=== PATIENT | female | born 1970 | race Caucasian/White ===

== ENCOUNTER 2018-06-17 11:15 | Emergency (ER) | payer MEDICAID ==
[~2018-06-17] VITALS: Ht 157.5 cm; Wt 63.5 kg
[2018-06-17] MEDS ORDERED: NACL 0.9% 1,000 ML IV ONE (11:20)
[2018-06-17 11:27] VITALS: BP_SYST 121
--- NOTE | 2018-06-17 11:35 | NUR ---
Patient to ER bed 1 to gown for evaluation. Side rails up. Report given to Ramírez JHA.
--- NOTE | 2018-06-17 11:40 | NUR ---
Patient comes to ER in personal vehicle accompanied by significant other. Patient AOx4, verbal and ambulatory, with complaint of abdominal pain 08/05. No other compaint or injury at this time.
--- NOTE | 2018-06-17 11:54 | NUR ---
ER Dr. MARTINEZ at bedside examining patient.
[2018-06-17 11:59] LABS: BASOPHILS % (AUTO) 0.5 % (0.0-2.0); EOSINOPHILS # (AUTO) 0.2 K/uL (0.0-0.4); EOSINOPHILS % (AUTO) 3.2 % (0.0-4.0); HEMOGLOBIN 13.9 g/dL (12.0-16.0); LYMPHOCYTES # (AUTO) 1.4 K/uL (1.0-5.5); MEAN CORPUSCULAR HEMOGLOBIN 33 pg (27-31); MEAN CORPUSCULAR HGB CONC 33 % (32-36); MEAN CORPUSCULAR VOLUME 100 fL (79.0-98.0); MONOCYTES # (AUTO) 0.7 K/uL (0.0-1.0); MONOCYTES % (AUTO) 8.8 % (1.7-9.3); NEUTROPHILS # (AUTO) 5.4 K/uL (1.8-7.7); NEUTROPHILS % (AUTO) 69.5 % (40.0-70.0); PLATELET COUNT (AUTO) 359 K/uL (130-430); RED BLOOD CELL COUNT(AUTO) 4.21 MIL/uL (4.2-6.2); RED CELL DISTRIBUTION WIDTH 13.3 % (9.0-15.0); WHITE BLOOD COUNT (AUTO) 7.8 K/uL (4.8-10.8)
[2018-06-17] MEDS ORDERED: ONDANSETRON HCL 4 MG/2 ML VIAL IVP ONE (12:00)
[2018-06-17] MEDS ORDERED: MORPHINE 4 MG/ML INJ. SYRINGE IVP ONE (12:00)
--- NOTE | 2018-06-17 12:00 | NUR ---
Patient refused IV start, and medications stating that she just wants test results.
[2018-06-17 12:12] LABS: CALCIUM 8.8 mg/dL (8.4-11.0); CREATININE 0.69 mg/dL (0.55-1.30); POTASSIUM 3.9 mmol/L (3.5-5.1)
[2018-06-17 12:14] LABS: PROTHROMBIN TIME 9.9 SECS (9.5-12.5)
[2018-06-17 12:16] LABS: ALBUMIN 3.3 g/dL (3.4-4.8); TOTAL BILIRUBIN 0.4 mg/dL (0.0-1.0)
--- NOTE | 2018-06-17 14:10 | NUR ---
DR MARTINEZ at bedside answering patient questions regarding diagnosis
--- NOTE | 2018-06-17 14:55 | NUR ---
Patient returned from ultrasound, tolerated well with minimal discomfort.
[2018-06-17 16:35] VITALS: BP_SYST 124
--- NOTE | 2018-06-17 16:35 | NUR ---
Patient given written and verbal discharge instructions and verbalizes understanding. ER MD discussed with patient the results and treatment provided. Patient in stable condition. ID arm band removed. Rx of Tylenol with codein, and zofran given. Patient educated on pelvic mass, pelvic pain and pain management and to follow up with PMD. Pain Scale 0/10. Opportunity for questions provided and answered. Medication side effect fact sheet provided.
== END 2018-06-17 16:35 | disposition home or self-care (01) ==
LOC: SED 11:15
DX: R19.09 Other intra-abdominal and pelvic swelling, mass and lump (principal); C76.3 Malignant neoplasm of pelvis; R03.0 Elevated blood-pressure reading, without diagnosis of hypertension
CPT/HCPCS: 36415; 71045; 74176; 76830; 76857; 80053; 82150; 82550; 83605; 83690; 85025; 85610; 85730; 87040; 93005; 99284; J2270

== ENCOUNTER 2018-11-13 20:14 | Inpatient (IN) | payer MEDICAID ==
[~2018-11-13] VITALS: Ht 157.5 cm; Wt 68.0 kg
[2018-11-13 20:19] VITALS: BP_SYST 138
--- NOTE | 2018-11-13 20:20 | NUR ---
ER Dr. Lamas in triage examining patient.
[2018-11-13] MEDS ORDERED: NACL 0.9% 1,000 ML IV ONE (20:36)
[2018-11-13] MEDS ORDERED: ONDANSETRON HCL 4 MG/2 ML VIAL IVP ONE (20:45)
[2018-11-13] MEDS ORDERED: MORPHINE 2 MG/ML INJ. SYRINGE IVP ONE (20:45)
--- NOTE | 2018-11-13 20:59 | NUR ---
Patient to ER bed 04 to gown for evaluation. Side rails up.
--- NOTE | 2018-11-13 21:05 | NUR ---
Pt complains of abdominal pain for the last three days and got worse today. Pt states she alternates from having diarrhea and constipation. Denies N/V. Abdomen appears to be distended. Pt is a chemo-patient. No other injuries/complaint per patient or noted.
[2018-11-13 21:58] LABS: BASOPHILS % (AUTO) 0.4 % (0.0-2.0); EOSINOPHILS # (AUTO) 0.2 K/uL (0.0-0.4); EOSINOPHILS % (AUTO) 2.8 % (0.0-4.0); HEMATOCRIT 38.1 % (36-48); HEMOGLOBIN 12.7 g/dL (12.0-16.0); LYMPHOCYTES # (AUTO) 1.8 K/uL (1.0-5.5); LYMPHOCYTES % (AUTO) 25.2 % (20.5-51.5); MEAN CORPUSCULAR HEMOGLOBIN 31 pg (27-31); MEAN CORPUSCULAR HGB CONC 33 % (32-36); MEAN CORPUSCULAR VOLUME 92 fL (79.0-98.0); MONOCYTES # (AUTO) 0.8 K/uL (0.0-1.0); MONOCYTES % (AUTO) 11.6 % (1.7-9.3); NEUTROPHILS # (AUTO) 4.3 K/uL (1.8-7.7); PLATELET COUNT (AUTO) 267 K/uL (130-430); RED BLOOD CELL COUNT(AUTO) 4.13 MIL/uL (4.2-6.2); RED CELL DISTRIBUTION WIDTH 19.7 % (9.0-15.0); WHITE BLOOD COUNT (AUTO) 7.2 K/uL (4.8-10.8)
[2018-11-13 22:14] LABS: ANION GAP 6 (5-15); CALCIUM 8.6 mg/dL (8.4-11.0); CHLORIDE 105 mmol/L (98-107); CREATININE 0.68 mg/dL (0.55-1.30); GLUCOSE 99 mg/dL (70-99); POTASSIUM 4.2 mmol/L (3.5-5.1); SODIUM SERUM 139 mmol/L (136-145); UREA NITROGEN, BLOOD 10 mg/dL (8-21)
[2018-11-13 22:15] LABS: GFR AFRICAN AMERICAN 119 mL/min (>90)
[2018-11-13 22:18] LABS: PROTHROMBIN TIME 9.9 SECS (9.5-12.5)
[2018-11-13 22:26] LABS: ALANINE AMINOTRANSFERASE 17 U/L (12-78); ALBUMIN 2.9 g/dL (3.4-4.8); ASPARTATE AMINOTRANSFERASE 20 U/L (10-37); LIPASE 269 U/L (73-393); TOTAL BILIRUBIN 0.1 mg/dL (0.0-1.0)
[2018-11-13 22:59] LABS: BILIRUBIN,URINE NEGATIVE (NEGATIVE); BLOOD, URINE NEGATIVE (NEGATIVE); CLARITY/URINE HAZY (CLEAR); COLOR,URINE YELLOW (YELLOW); GLUCOSE,URINE NEGATIVE (NEGATIVE); KETONES,URINE NEGATIVE (NEGATIVE); LEUKOCYTE ESTERASE ,URINE NEGATIVE (NEGATIVE); NITRITE, URINE NEGATIVE (NEGATIVE); PH,URINE 6.5 (5.0-8.0); PROTEIN URINE NEGATIVE (NEGATIVE); UROBILINOGEN,URINE 0.2 (0.2-1.0)
[2018-11-13] MEDS ORDERED: METO5TAB86 PO (23:32)
[2018-11-13] MEDS ORDERED: PRO40 PO (23:32)
[2018-11-13] MEDS ORDERED: HYDR-4272 PO (23:32)
--- NOTE | 2018-11-13 23:33 | NUR ---
Medication reconciliation completed with information provided by patient. Any prior medication reconciliation on file was reviewed and corrected.
--- NOTE | 2018-11-14 00:09 | NUR ---
ER Dr. Lamas speaking with Dr. Burt in regards to admission.
[2018-11-14] MEDS ORDERED: ONDANSETRON HCL 4 MG/2 ML VIAL IVP PRN (00:30)
--- NOTE | 2018-11-14 00:31 | NUR ---
Dr. Burt ordered Protonix 40mg IVP now. Administered Protonix 40mg IVP in ED prior to transporting patient to Telemetry unit.
--- NOTE | 2018-11-14 00:31 | NUR ---
Jeremy Bullock number [phone]
--- NOTE | 2018-11-14 00:33 | NUR ---
Patient will be admitted to care of Dr. Burt. Admitted to Telemetry unit. Will go to room 103 B. Belongings list completed. Summary report printed. Report will be given at bedside.
--- NOTE | 2018-11-14 00:33 | NUR ---
Transfer to Telemetry via ACLS protocol. Licensed nurse present. IV present no signs or symptoms of infiltration.
[2018-11-14] MEDS ORDERED: PANTOPRAZOLE SODIUM 40 MG/VIAL (PROTONIX) IVP SCH ×2 (00:35→09:00)
--- NOTE | 2018-11-14 00:42 | NUR ---
ADMIT NOTE Received pt from ER to the floor with a diagnosis of refractory pain. Admission process initiated. patient oriented to pain management, safety and call light-teach back done.
[2018-11-14] MEDS ORDERED: PANTOPRAZOLE SODIUM 40 MG/VIAL (PROTONIX) ONE (00:43)
[2018-11-14 00:52] VITALS: BP_SYST 99
--- NOTE | 2018-11-14 01:15 | NUR ---
ROUNDS PATIENT RESTING COMFORTABLY IN BED, NOT IN DISTRESS, VITALS STABLE, C/O ABDOMINAL PAIN AT THIS TIME. ADMISSION ASSESSMENT DONE AND DOCUMENTED. SEE FLOWSHEET. NEEDS ATTENDED TO. SAFETY AND FALL PRECAUTION MEASURES IN PLACED. BED IN LOW AND LOCKED POSITION. CALL LIGHT PLACED WITHIN REACH.
[2018-11-14] MEDS: HYDROmorphone 1 MG INJ. 1 MG/ML AMPUL IVP PRN ×3 (01:20→12:31)
[2018-11-14] MEDS ORDERED: KCL 10 mEq in D5/0.45NS 1000mL 1,000 ML IV ONE (02:09)
[2018-11-14] MEDS: KCL 10 mEq in D5/0.45NS 1000mL 1,000 ML IV SCH ×2 (02:16→12:19)
--- NOTE | 2018-11-14 04:14 | NUR ---
ROUNDS PATIENT ASLEEP, RESPIRATIONS EVEN AND UNLABORED, NO SIGNS OF ANY PAIN AND DISCOMFORT NOTED. WILL CONTINUE TO MONITOR.
--- NOTE | 2018-11-14 06:46 | NUR ---
CLOSING NOTES PATIENT RESTING COMFORTABLY IN BED, VITALS STABLE, NO COMPLAINTS AT THIS TIME. ALL NEEDS ATTENDED TO. SAFETY AND FALL MEASURES MAINTAINED. CALL LIGHT PLACED WITHIN REACH.
--- NOTE | 2018-11-14 08:00 | NUR ---
inital notes rec patient awake alert with ivf infusing well on the right upper chest pedrito cath. no infiltration noted. resp easy and unlabored. no osb noted. bed to the lowest position and side rails up and locked. call light within reached and knows when to call for help. will continue to monitor patient.
--- NOTE | 2018-11-14 09:56 | NUR ---
CONSULTATION PAGED REASON FOR CONSULTATION:ABD PAIN WAS CONSULT CALLED?Y PERSON WHO WAS NOTIFIED:CHAD CONSULTING PHYSICIAN:ELADIA NOVAK BUSINESS SERVICES DIRECTOR SPECIALTY:GI BUSINESS SERVICES DIRECTOR PHONE NUMBER:[phone] ORDERING PHYSICIAN:KRYSTINA BUSBY
--- NOTE | 2018-11-14 10:28 | NUR ---
rounds seen by dr randall and with orders.dennys constantino at this time.call light within reached. no sob noted.
--- NOTE | 2018-11-14 11:04 | NUR ---
CONSULTATION PAGED/CALLED Reason for Consultation: ABD PAIN Person Who was Notified: SPOKE TO EXCHANGE FROM OFFICE. Consulting Physician: Fiberglass Roving Winder Specialty: GASTROENTEROLOGY Ordering Physician:
[2018-11-14 12:00] VITALS: BP_SYST 114
--- NOTE | 2018-11-14 12:30 | NUR ---
rounds npo maintained for ultrasound at 1500. assisted to the br and rylee well. nauseated when patient was back in bed and was medicated and for abdominal pain as well. no sob noted.
--- NOTE | 2018-11-14 13:48 | NUR ---
PAGED PAGED KRYSTINA BUSBY AT [phone] SPOKE WITH CAITY.
--- NOTE | 2018-11-14 15:35 | NUR ---
DC Planning Assessment: EMERGENCY PREPAREDNESS COORDINATOR met with Pt at bedside for DC planning assessment. Pt. reported that she would like to return home with family, she resided with 3 other adults that would be able to assist her if needed., private car as transportation. Pt. does not utilize any DME,she has a walker at home but does not use it. She reported that she is able to ambulate on her own, independent and is able to attend to her own ADL. She has not utilized HH/ SNF in the past and has no preference in a provider should the need arise. Additionally Pt was in formed of SS should the need arise. No further question or inquiry. CM/DC/SS will remain available as needed.
--- NOTE | 2018-11-14 16:00 | NUR ---
rounds abdominal ultrasound was done and not pelvis since stated she has pain. reported to dr randall.
--- NOTE | 2018-11-14 16:34 | NUR ---
MD MONZON PAGEKRYSTINA VERMA AT [phone] SPOKE WITH .
--- NOTE | 2018-11-14 17:01 | NUR ---
rounds waiting for dinner and dr randall stated if rylee dinner can be discharged home.
[2018-11-14 17:07] VITALS: BP_SYST 116
[2018-11-14 18:36] VITALS: BP_SYST 116
--- NOTE | 2018-11-14 19:00 | NUR ---
closing notes pt was discharged after patient tolerating solid food. denies apin. pedrito cath access was removed and clean with alcohol. covered with 2x2 gauze. ivl and id band was removed. was wheeled outside . no sob noted.
== END 2018-11-14 19:00 | disposition home or self-care (01) | DRG 240 ==
LOC: SED 20:14 → STU 11-14 00:18 → SMU 11-14 10:17
PROVIDERS: ADMIT Internal Medicine; ATTEND Internal Medicine
DX: C78.6 Secondary malignant neoplasm of retroperitoneum and peritoneum (principal); R18.8 Other ascites; C79.51 Secondary malignant neoplasm of bone; E44.0 Moderate protein-calorie malnutrition; C80.1 Malignant (primary) neoplasm, unspecified; Z79.899 Other long term (current) drug therapy; Z92.21 Personal history of antineoplastic chemotherapy
CPT/HCPCS: 36415; 76700-TC; 80053; 81003; 81025; 83690-TC; 84484; 85025; 85610-TC; 85730-TC; 93005; 96361; 96374; 96375; 99285; C9113; J1170; J2270; J2405